=== PATIENT | male | born 1985 | race Caucasian/White ===

== ENCOUNTER 2017-10-22 10:52 | Inpatient (IN) | payer OTHER ==
[2017-10-22] MEDS ORDERED: IV NORMAL SALINE 1000ML BAG 1,000 ML IV ONE ×2 (11:00→12:00)
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
[2017-10-22 11:19] LABS: BASO % 0 % (0-3); EOS % 0 % (0-3); HEMOGLOBIN 15.3 g/dL (13.0-17.5); LYMPH # 1.4 x10^3/uL (1.0-4.8); LYMPH % 11 % (24-48); MEAN CORPUSCULAR HEMOGLOBIN 30 pg (25-35); MEAN CORPUSCULAR HGB CONC 34 g/dL (31-37); MEAN CORPUSCULAR VOLUME 89 fL (79-100); MONO % 6 % (0-9); NEUT % 83 % (31-73); PLATELET COUNT 259 x10^3/uL (140-400); RED BLOOD COUNT 5.08 x10^6/uL (4.30-5.70)
[2017-10-22 11:22] LABS: CALCIUM 10.2 mg/dL (8.5-10.1); CREATININE 1.2 mg/dL (0.7-1.3); GFR 70.2; POTASSIUM 3.5 mmol/L (3.5-5.1)
[2017-10-22 11:28] LABS: ALBUMIN 4.3 g/dL (3.4-5.0); ALBUMIN/GLOBULIN RATIO 1.1 (1.0-1.7); TOTAL BILIRUBIN 0.6 mg/dL (0.2-1.0); TOTAL PROTEIN 8.1 g/dL (6.4-8.2)
[2017-10-22] MEDS ORDERED: DIPHTH,PERTUSS(ACELL),TET TOX 0.5 ML DISP.SYRIN. VAX IM ONE (11:30)
--- NOTE | 2017-10-22 11:47 | EKG ---
[facility] [address] [place] [address] Test Date: 2017-10-22 Test Time: 10:56:03 Pat Name: CASSIDY HILL Department: Room: Gender: M Clinical Education Specialist: : [id number] Requested By: PAM SCHMITT Order Number: [id number] Reading MD: Neto Zurita Measurements Intervals [place] Rate: 99 P: 74 IL: 136 QRS: 78 QRSD: 94 T: 53 QT: 318 QTc: 408 Interpretive Statements SINUS RHYTHM NO SPECIFIC ECG ABNORMALITIES Electronically Signed On 11-04-2017 13:52:44 SHAREPOINT ANALYST by Neto Zurita
[2017-10-22] MEDS ORDERED: cefTRIAXone SODIUM 2 GM in IV DEXTROSE 5% 100 ML IV ONE (12:00)
[2017-10-22] MEDS ORDERED: cefTRIAXone IV Push 2 GM VIAL. IVP ONE (12:00)
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
[2017-10-22 12:25] LABS: BARBITURATES NEG (NEG); BENZODIAZEPINES NEG (NEG); CANNABINOIDS NEG (NEG); COCAINE NEG (NEG); METHADONE NEG (NEG); OPIATES NEG (NEG); PHENCYCLIDINE NEG (NEG)
[2017-10-22 13:29] LABS: BILIRUBIN,URINE NEGATIVE (NEG); GLUCOSE,URINE NEGATIVE (NEG); NITRITE,URINE NEGATIVE (NEG); PROTEIN,URINE NEGATIVE (NEG-TRACE); UROBILINOGEN,URINE 0.2 mg/dL (0.2 mg/dL)
[2017-10-22 13:40] LABS: BACTERIA,URINE FEW /HPF (0-FEW); RBC,URINE RARE /HPF (0-2); WBC,URINE OCC /HPF (0-4)
[2017-10-22] MEDS ORDERED: LIDOCAINE 2% 20 ML VIAL. ONE (13:44)
[2017-10-22 14:21] LABS: CSF CLARITY CLEAR; CSF COLOR COLORLESS
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
[2017-10-22] MEDS ORDERED: IV DEXTROSE 5 %-0.45 % NACL 1,000 ML IV ONE ×2 (15:00)
[2017-10-22] MEDS ORDERED: IOHEXOL 240 MG/ML 50ML VIAL. PO ONE (15:15)
[2017-10-22] MEDS ORDERED: CONTRAST GIVEN MC PRN (15:15)
[2017-10-22] MEDS ORDERED: IOHEXOL 300 MG/ML 100ML VIAL. IV ONE (15:15)
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
[2017-10-22] MEDS ORDERED: HALOPERIDOL LACTATE 5 MG/ML VIAL. IM PRN (17:15)
[2017-10-22] MEDS ORDERED: HALOPERIDOL LACTATE 5 MG/ML VIAL. IVP PRN (17:15)
[2017-10-22 19:00] VITALS: BP 119/71
[2017-10-22 23:04] VITALS: BP 126/76
[2017-10-23 03:33] VITALS: BP 113/78
[2017-10-23 03:45] LABS: BASO % 0 % (0-3); EOS % 1 % (0-3); HEMATOCRIT 39.3 % (39.0-53.0); HEMOGLOBIN 13.4 g/dL (13.0-17.5); LYMPH # 2.9 x10^3/uL (1.0-4.8); LYMPH % 30 % (24-48); MEAN CORPUSCULAR HEMOGLOBIN 31 pg (25-35); MEAN CORPUSCULAR HGB CONC 34 g/dL (31-37); MEAN CORPUSCULAR VOLUME 90 fL (79-100); MONO % 11 % (0-9); NEUT % 59 % (31-73); PLATELET COUNT 219 x10^3/uL (140-400); RED BLOOD COUNT 4.36 x10^6/uL (4.30-5.70); RED CELL DISTRIBUTION WIDTH 13.1 % (11.5-14.5); WHITE BLOOD COUNT 9.7 x10^3/uL (4.0-11.0)
[2017-10-23 06:50] VITALS: BP 110/74
[2017-10-23 10:45] VITALS: BP 107/70
[2017-10-23] MEDS ORDERED: IOHEXOL 300 MG/ML 100ML VIAL. IV ONE (12:45)
[2017-10-23] MEDS ORDERED: CONTRAST GIVEN MC PRN (12:45)
[2017-10-23] MEDS ORDERED: IOHEXOL 240 MG/ML 50ML VIAL. PO ONE (12:45)
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
[2017-10-23] MEDS ORDERED: GADOBUTROL 7.5 MMOL/7.5 ML VIAL IV ONE (18:00)
--- NOTE | 2017-10-23 18:14 | EEG ---
DATE OF SERVICE: 10/23/2017 EEG NUMBER: [id number] OBJECTIVE: This is a 32-year-old male patient with history of mental status changes and possible seizure. EEG was requested to help rule out seizures. METHODS: Twenty electrodes were applied according to the international 10-20 electrode placement system. EKG monitoring, hyperventilation, intermittent photic stimulation, monopolar and bipolar montages are routinely utilized. The record was obtained on a digital system with video monitoring. FINDINGS: 1. Background: The patient was recorded in the awake and drowsy states. No sleep state was recorded. The overall background amplitude is 10-20 microvolts. A posterior dominant rhythm of 9-10 Hz is observed with superimposed fast activity in beta frequency. 2. Abnormalities: No specific epileptiform discharge or electrographic seizure is seen. No focal or diffuse slowing. Fast activity in beta frequency noted. Artifact also noted. 3. Activation: Hyperventilation was performed with good efforts and normal response. Intermittent photic stimulation was performed with photic driving. No specific epileptiform discharge or electrographic seizure induced. IMPRESSION: This EEG is a borderline study for the awake and drowsy states. No sleep state was recorded. The faster activity in beta frequency noted. No focal, lateralizing, specific epileptiform discharge or electrographic seizure is seen. CONRAD RODRIGUEZ MD DR: SIN/joyce JOB#: [id number] / [id number] ALYSIA
--- NOTE | 2017-10-23 18:18 | PDOC ---
PROGRESS NOTES History of Present Illness History of Present Illness admitted with altered mentation, found by his truck, work up to date reviewed Vitals Vitals Vital Signs Date Time Temp Pulse Resp B/P (MAP) Pulse Ox O2 Delivery O2 Flow Rate FiO2 10/23/17 10:45 97.8 99 18 107/70 (82) 97 Room Air 97.8 Past Medical History Cardiovascular: No pertinent hx Pulmonary: No pertinent hx GI: No pertinent hx Heme/Onc: No pertinent hx Hepatobiliary: No pertinent hx Psych: No pertinent hx Rheumatologic: No pertinent hx Infectious disease: No pertinent hx ENT: No pertinent hx Endocrine: No pertinent hx Dermatology: No pertinent hx Past Surgical History Past Surgical History: No pertinent history Family History Family History: No Significant Social History Smoke: No ALCOHOL: none Drugs: None Current Medications Current Medications Current Medications Sodium Chloride 1,000 ml @ 1,000 mls/hr 1X ONCE IV Last administered on 10/22 11:56; Start 10/22/17 at 11:00; Stop 10/22/17 at 11:59; Status DC Diphtheria/ Tetanus/Acell Pertussis (Boostrix) 0.5 ml ONCE ONCE VAX IM Last administered on 10/22/17 11:59; Start 10/22/17 at 11:30; Stop 10/22/17 at 11 :31; Status DC Sodium Chloride 1,000 ml @ 1,000 mls/hr 1X ONCE IV Last administered on 10/22 12:44; Start 10/22/17 at 12:00; Stop 10/22/17 at 12:59; Status DC Ceftriaxone Sodium 2 gm/ Dextrose 100 ml @ 200 mls/hr 1X ONCE IV ; Start at 12:00; Stop 10/22/17 at 12:00; Status DC Ceftriaxone Sodium (Rocephin) 2 gm 1X ONCE IVP Last administered on 12:44; Start 10/22/17 at 12:00; Stop 10/22/17 at 12:01; Status DC Allergies Allergies: Coded Allergies: No Known Drug Allergies (Unverified , 10/22/17) ROS Review of System limited, guarded demeanor, was not interested in food Physical Exam General: Alert, Oriented X3, Cooperative, No acute distress HEENT: PERRLA, EOMI Lungs: Clear to auscultation, Normal air movement Heart: S1S2, RRR, no thrills, no rubs, no gallops, no murmurs Cardiovascular: S1, S2, Other (sinus tachy) Abdomen: Normal bowel sounds, Soft, No tenderness, No hepatosplenomegaly, No masses Male Genitals Exam: normal genitalia, normal prostate Rectal Exam: not examined PELVIC: Nml ext genitalia Extremities: No clubbing, No cyanosis, No edema, Normal pulses, No tenderness/ swelling Skin: Other (multiple scratches, face, hands) Neuro: Normal gait, Normal speech, Strength at 5/5 X4 ext, Normal tone, Sensation intact, Cranial nerves 3-12 NL, Reflexes 2+ Psych/Mental Status: Mental status NL, Mood NL Vitals Vitals Physical Exam Physical Exam Past Medical History Cardiovascular: No pertinent hx Pulmonary: No pertinent hx GI: No pertinent hx Heme/Onc: No pertinent hx Hepatobiliary: No pertinent hx Psych: No pertinent hx Rheumatologic: No pertinent hx Infectious disease: No pertinent hx ENT: No pertinent hx Endocrine: No pertinent hx Dermatology: No pertinent hx Past Surgical History Past Surgical History: No pertinent history Family History Family History: No Significant Social History Smoke: No ALCOHOL: none Drugs: None Current Medications Current Medications Current Medications Sodium Chloride 1,000 ml @ 1,000 mls/hr 1X ONCE IV Last administered on 10/22 11:56; Start 10/22/17 at 11:00; Stop 10/22/17 at 11:59; Status DC Diphtheria/ Tetanus/Acell Pertussis (Boostrix) 0.5 ml ONCE ONCE VAX IM Last administered on 10/22/17 11:59; Start 10/22/17 at 11:30; Stop 10/22/17 at 11 :31; Status DC Sodium Chloride 1,000 ml @ 1,000 mls/hr 1X ONCE IV Last administered on 10/22 12:44; Start 10/22/17 at 12:00; Stop 10/22/17 at 12:59; Status DC Ceftriaxone Sodium 2 gm/ Dextrose 100 ml @ 200 mls/hr 1X ONCE IV ; Start at 12:00; Stop 10/22/17 at 12:00; Status DC Ceftriaxone Sodium (Rocephin) 2 gm 1X ONCE IVP Last administered on 11/21/ 17at 12:44; Start 10/22/17 at 12:00; Stop 10/22/17 at 12:01; Status DC Allergies Allergies: Coded Allergies: No Known Drug Allergies (Unverified , 10/22/17) ROS Review of System limited, guarded demeanor, was not interested in food Physical Exam General: Alert, Oriented X3, Cooperative, No acute distress HEENT: PERRLA, EOMI Lungs: Clear to auscultation, Normal air movement Heart: S1S2, RRR, no thrills, no rubs, no gallops, no murmurs Cardiovascular: S1, S2, Other (sinus tachy) Abdomen: Normal bowel sounds, Soft, No tenderness, No hepatosplenomegaly, No masses Rectal Exam: not examined PELVIC: Nml ext genitalia Extremities: No clubbing, No cyanosis, No edema, Normal pulses, No tenderness/ swelling Skin: Other (multiple scratches, face, hands) Neuro: Normal gait, Normal speech, Strength at 5/5 X4 ext, Normal tone, Sensation intact, Cranial nerves 3-12 NL, Reflexes 2+ Psych/Mental Status: Mental status NL, Mood NL Vitals Vitals General: Alert, Oriented X3, Cooperative, No acute distress Heart: Regular rate Lungs: Clear Abdomen: Soft, No tenderness Extremities: No clubbing, No cyanosis Skin: No rashes, No breakdown Labs LABS Findings: No acute extra-axial or parenchymal hemorrhage is identified. There is no significant intra-axial mass effect, midline shift, or extra-axial fluid collection. The malik-white differentiation of the major vascular territories is preserved. The ventricles, sulci, and cisterns are within normal limits in size and configuration. The mastoid air cells and the visualized paranasal sinuses are aerated. There is no significant focal calvarial abnormality. Impression: 1. No acute intracranial abnormality is identified. Cervical spine CT Comparison: None Findings: No acute cervical spine fracture is identified. Vertebral body stature and AP alignment are within normal limits. Atlanto-axial distance is within normal limits. There is appropriate alignment of lateral masses of C1 relative to C2. Occipital condylar-C1 relationship is maintained. There is mild degenerative disc disease C5-C6. There are minimal disc osteophyte complexes C3-4 to C5-C6. There is probable mild spinal stenosis on the order of 8 to 9 mm at C5-C6. There is uncovertebral degenerative change greatest on the right at C5-C6. There is moderate to severe right and moderate left C5-C6 neural foramina compromise, also mild to moderate narrowing on the left at C3-4. Impression: 1. No acute cervical spine fracture is identified. 2. There is degenerative disc disease and spondylosis greatest C5-C6 at which there is likely mild spinal stenosis. 3. Uncovertebral degenerative change contributes to neural foramina compromise greatest bilaterally at C5-C6. Laboratory Tests Test 10/23/17 03:00 White Blood Count 9.7 x10^3/uL (4.0-11.0) Red Blood Count 4.36 x10^6/uL (4.30-5.70) Hemoglobin 13.4 g/dL (13.0-17.5) Hematocrit 39.3 % (39.0-53.0) Mean Corpuscular Volume 90 fL (79-100) Mean Corpuscular Hemoglobin 31 pg (25-35) Mean Corpuscular Hemoglobin Concent 34 g/dL (31-37) Red Cell Distribution Width 13.1 % (11.5-14.5) Platelet Count 219 x10^3/uL (140-400) Neutrophils (%) (Auto) 59 % (31-73) Lymphocytes (%) (Auto) 30 % (24-48) Monocytes (%) (Auto) 11 % (0-9) Eosinophils (%) (Auto) 1 % (0-3) Basophils (%) (Auto) 0 % (0-3) Neutrophils # (Auto) 5.7 x10^3uL (1.8-7.7) Lymphocytes # (Auto) 2.9 x10^3/uL (1.0-4.8) Monocytes # (Auto) 1.0 x10^3/uL (0.0-1.1) Eosinophils # (Auto) 0.0 x10^3/uL (0.0-0.7) Basophils # (Auto) 0.0 x10^3/uL (0.0-0.2) Lactic Acid Level 0.8 mmol/L (0.4-2.0) Calcium Level 9.1 mg/dL (8.5-10.1) Review of Systems Review of Systems feels ok memory ok mri pending at 18:40 he is under lots of financial stress concern for seizure, however, no witness, he did not bite his tongue no driving x 6 months see neurology in 2 weeks if MRI HEAD OK Assessment and Plan Assessmemt and Plan Problems Medical Problems: (1) Acute encephalopathy Status: Acute (2) Lactic acidosis Status: Acute (3) Psychosis Status: Acute p Problems: Comment Review of Relevant I have reviewed the following items nazanin (where applicable) has been applied. Labs Laboratory Tests Test 10/22/17 11:04 10/22/17 11:30 10/22/17 12:11 10/22/17 13:49 White Blood Count 13.0 x10^3/uL (4.0-11.0) Red Blood Count 5.08 x10^6/uL (4.30-5.70) Hemoglobin 15.3 g/dL (13.0-17.5) Hematocrit 45.0 % (39.0-53.0) Mean Corpuscular Volume 89 fL (79-100) Mean Corpuscular Hemoglobin 30 pg (25-35) Mean Corpuscular Hemoglobin Concent 34 g/dL (31-37) Red Cell Distribution Width 13.0 % (11.5-14.5) Platelet Count 259 x10^3/uL (140-400) Neutrophils (%) (Auto) 83 % (31-73) Lymphocytes (%) (Auto) 11 % (24-48) Monocytes (%) (Auto) 6 % (0-9) Eosinophils (%) (Auto) 0 % (0-3) Basophils (%) (Auto) 0 % (0-3) Neutrophils # (Auto) 10.9 x10^3uL (1.8-7.7) Lymphocytes # (Auto) 1.4 x10^3/uL (1.0-4.8) Monocytes # (Auto) 0.7 x10^3/uL (0.0-1.1) Eosinophils # (Auto) 0.0 x10^3/uL (0.0-0.7) Basophils # (Auto) 0.0 x10^3/uL (0.0-0.2) Sodium Level 140 mmol/L (136-145) Potassium Level 3.5 mmol/L (3.5-5.1) Chloride Level 101 mmol/L (98-107) Carbon Dioxide Level 26 mmol/L (21-32) Anion Gap 13 (6-14) Blood Urea Nitrogen 15 mg/dL (8-26) Creatinine 1.2 mg/dL (0.7-1.3) Estimated GFR (Cockcroft-Gault) 70.2 BUN/Creatinine Ratio 13 (6-20) Glucose Level 186 mg/dL (70-99) Lactic Acid Level 4.5 mmol/L (0.4-2.0) Calcium Level 10.2 mg/dL (8.5-10.1) Total Bilirubin 0.6 mg/dL (0.2-1.0) Aspartate Amino Transf (AST/SGOT) 24 U/L (15-37) Alanine Aminotransferase (ALT/SGPT) 20 U/L (16-63) Alkaline Phosphatase 79 U/L (46-116) Total Protein 8.1 g/dL (6.4-8.2) Albumin 4.3 g/dL (3.4-5.0) Albumin/Globulin Ratio 1.1 (1.0-1.7) Ethyl Alcohol Level < 10 mg/dL (0-10) Ethyl Alcohol Level (Legal) Specimen drawn Urine Collection Type Unknown Urine Color Yellow Urine Clarity Clear Urine pH 7.0 Urine Specific [place] 1.025 Urine Protein Negative mg/dL (NEG-TRACE) Urine Glucose (UA) Negative mg/dL (NEG) Urine Ketones (Stick) 40 mg/dL (NEG) Urine Blood Negative (NEG) Urine Nitrite Negative (NEG) Urine Bilirubin Negative (NEG) Urine Urobilinogen Dipstick 0.2 mg/dL (0.2 mg/dL) Urine Leukocyte Esterase Negative (NEG) Urine RBC Rare /HPF (0-2) Urine WBC Occ /HPF (0-4) Urine Squamous Epithelial Cells None /LPF Urine Bacteria Few /HPF (0-FEW) Urine Mucus Slight /LPF Urine Opiates Screen Neg (NEG) Urine Methadone Screen Neg (NEG) Urine Barbiturates Neg (NEG) Urine Phencyclidine Screen Neg (NEG) Urine Amphetamine/Methamphetamine Neg (NEG) Urine Benzodiazepines Screen Neg (NEG) Urine Cocaine Screen Neg (NEG) Urine Cannabinoids Screen Neg (NEG) Urine Ethyl Alcohol Neg (NEG) CSF Tube Number 4 CSF Color Colorless CSF Clarity Clear CSF WBC 1 CSF RBC 0 CSF Glucose 86 mg/dL (37-70) CSF Total Protein 38.0 mg/dL (15.0-45.0) Test 11/21/17 14:35 10/23/17 03:00 Glucose Level 98 mg/dL (70-99) Lactic Acid Level 1.1 mmol/L (0.4-2.0) 0.8 mmol/L (0.4-2.0) White Blood Count 9.7 x10^3/uL (4.0-11.0) Red Blood Count 4.36 x10^6/uL (4.30-5.70) Hemoglobin 13.4 g/dL (13.0-17.5) Hematocrit 39.3 % (39.0-53.0) Mean Corpuscular Volume 90 fL (79-100) Mean Corpuscular Hemoglobin 31 pg (25-35) Mean Corpuscular Hemoglobin Concent 34 g/dL (31-37) Red Cell Distribution Width 13.1 % (11.5-14.5) Platelet Count 219 x10^3/uL (140-400) Neutrophils (%) (Auto) 59 % (31-73) Lymphocytes (%) (Auto) 30 % (24-48) Monocytes (%) (Auto) 11 % (0-9) Eosinophils (%) (Auto) 1 % (0-3) Basophils (%) (Auto) 0 % (0-3) Neutrophils # (Auto) 5.7 x10^3uL (1.8-7.7) Lymphocytes # (Auto) 2.9 x10^3/uL (1.0-4.8) Monocytes # (Auto) 1.0 x10^3/uL (0.0-1.1) Eosinophils # (Auto) 0.0 x10^3/uL (0.0-0.7) Basophils # (Auto) 0.0 x10^3/uL (0.0-0.2) Calcium Level 9.1 mg/dL (8.5-10.1) Laboratory Tests Test 10/23/17 03:00 White Blood Count 9.7 x10^3/uL (4.0-11.0) Red Blood Count 4.36 x10^6/uL (4.30-5.70) Hemoglobin 13.4 g/dL (13.0-17.5) Hematocrit 39.3 % (39.0-53.0) Mean Corpuscular Volume 90 fL (79-100) Mean Corpuscular Hemoglobin 31 pg (25-35) Mean Corpuscular Hemoglobin Concent 34 g/dL (31-37) Red Cell Distribution Width 13.1 % (11.5-14.5) Platelet Count 219 x10^3/uL (140-400) Neutrophils (%) (Auto) 59 % (31-73) Lymphocytes (%) (Auto) 30 % (24-48) Monocytes (%) (Auto) 11 % (0-9) Eosinophils (%) (Auto) 1 % (0-3) Basophils (%) (Auto) 0 % (0-3) Neutrophils # (Auto) 5.7 x10^3uL (1.8-7.7) Lymphocytes # (Auto) 2.9 x10^3/uL (1.0-4.8) Monocytes # (Auto) 1.0 x10^3/uL (0.0-1.1) Eosinophils # (Auto) 0.0 x10^3/uL (0.0-0.7) Basophils # (Auto) 0.0 x10^3/uL (0.0-0.2) Lactic Acid Level 0.8 mmol/L (0.4-2.0) Calcium Level 9.1 mg/dL (8.5-10.1) Microbiology 10/22/17 Blood Culture - Preliminary, Resulted NO GROWTH AFTER 1 DAY 10/22/17 Anaerobic/Aerobic Culture, Resulted Pending 10/22/17 Anaerobic Culture Result 1 ([facility]), Resulted Pending 10/22/17 Aerobic Culture - Preliminary, Resulted 10/22/17 Aerobic Culture Result 1 ([facility]) - Preliminary, Resulted Medications Current Medications Sodium Chloride 1,000 ml @ 1,000 mls/hr 1X ONCE IV Last administered on 10/22 11:56; Start 10/22/17 at 11:00; Stop 10/22/17 at 11:59; Status DC Diphtheria/ Tetanus/Acell Pertussis (Boostrix) 0.5 ml ONCE ONCE VAX IM Last administered on 10/22/17 11:59; Start 10/22/17 at 11:30; Stop 10/22/17 at 11 :31; Status DC Sodium Chloride 1,000 ml @ 1,000 mls/hr 1X ONCE IV Last administered on 10/22 12:44; Start 10/22/17 at 12:00; Stop 10/22/17 at 12:59; Status DC Ceftriaxone Sodium 2 gm/ Dextrose 100 ml @ 200 mls/hr 1X ONCE IV ; Start at 12:00; Stop 10/22/17 at 12:00; Status DC Ceftriaxone Sodium (Rocephin) 2 gm 1X ONCE IVP Last administered on 12:44; Start 10/22/17 at 12:00; Stop 10/22/17 at 12:01; Status DC Dextrose/Sodium Chloride 1,000 ml @ 100 mls/hr 1X ONCE IV ; Start 10/22/17 at 15:00; Stop 10/23/17 at 00:59; Status DC Dextrose/Sodium Chloride 1,000 ml @ 100 mls/hr 1X ONCE IV Last administered on 10/22/17 17:40; Start 10/22/17 at 15:00; Stop 10/23/17 at 00:59; Status DC Iohexol (Omnipaque 240 Mg/ml) 30 ml 1X ONCE PO ; Start 10/22/17 at 15:15; Stop 10/22/17 at 15:16; Status DC Iohexol (Omnipaque 300 Mg/ml) 75 ml 1X ONCE IV ; Start 10/22/17 at 15:15; Stop 10/22/17 at 15:16; Status DC Info (Do NOT chart on this entry -- for MONITORING) 1 each PRN DAILY PRN MC SEE COMMENTS; Start 10/22/17 at 15:15; Stop 10/23/17 at 12:36; Status DC Lorazepam (Ativan) 2 mg PRN Q4HRS PRN IV ANXIETY/AGITATION (1st Choice) Last administered on 10/22/17 23:07; Start 10/22/17 at 17:15 Haloperidol Lactate (Haldol) 5 mg PRN Q6HRS PRN IVP ANXIETY/AGITATION (2nd Choice); Start 10/22/17 at 17:15 Lorazepam (Ativan) 2 mg PRN Q4HRS PRN IM ANXIETY/AGITATION (1st Choice) Last administered on 10/22/17 17:33; Start 10/22/17 at 17:15 Haloperidol Lactate (Haldol) 5 mg PRN Q6HRS PRN IM ANXIETY/AGITATION (2nd Choice); Start 10/22/17 at 17:15 Iohexol (Omnipaque 300 Mg/ml) 75 ml 1X ONCE IV ; Start 10/23/17 at 12:45; Stop 10/23/17 at 12:46; Status DC Iohexol (Omnipaque 240 Mg/ml) 30 ml 1X ONCE PO ; Start 10/23/17 at 12:45; Stop 10/23/17 at 12:46; Status DC Info (Do NOT chart on this entry -- for MONITORING) 1 each PRN DAILY PRN MC SEE COMMENTS; Start 10/23/17 at 12:45; Stop 10/25/17 at 12:44 Gadobutrol (Gadavist) 5 mmol 1X ONCE IV Last administered on 10/23/17t 18:07 ; Start 10/23/17 at 18:00; Stop 10/23/17 at 18:01; Status DC Vitals/I & O Vital Sign - Last 24 Hours 10/22/17 10/22/17 10/22/17 10/23/17 19:00 20:00 23:04 03:33 Temp 98.5 98.4 98.6 98.5 98.4 98.6 Pulse 90 102 116 Resp 16 20 18 B/P (MAP) 119/71 (87) 126/76 (93) 113/78 (90) Pulse Ox 98 98 99 O2 Delivery Room Air Room Air Room Air Room Air 10/23/17 10/23/17 10/23/17 06:50 07:30 10:45 Temp 98.2 97.8 98.2 97.8 Pulse 102 99 Resp 17 18 B/P (MAP) 110/74 (86) 107/70 (82) Pulse Ox 98 97 O2 Delivery Room Air Room Air Room Air Intake and Output 10/22/17 10/22/17 10/23/17 15:00 23:00 07:00 Intake Total 0 ml 0 ml Output Total 550 ml Balance 0 ml -550 ml SILVER VAIL MD Oct 23, 2017 18:18
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
[2017-10-23 19:50] VITALS: BP 111/70
--- NOTE | 2017-10-23 20:19 | RAD ---
EXAM: Brain MRI with and without contrast. HISTORY: Syncope. Seizure. TECHNIQUE: Multiplanar, multisequence magnetic resonance imaging of the brain was performed prior to and following the administration of 5 cc Gadavist intravenous contrast. COMPARISON: None. FINDINGS: There is no restricted diffusion to suggest acute or subacute infarction. There is no susceptibility effect to suggest hemorrhage. There is no mass effect or midline shift. There is no hydrocephalus. No suspicious white matter lesion is seen. There is no heterotopia or malformation of cortical development. The hippocampi demonstrate symmetric size and signal. The orbits, paranasal sinuses and mastoid air cells are unremarkable. There are normal flow voids within the cerebral vessels. No enhancing lesion is seen. IMPRESSION: No acute intracranial finding. Electronically signed by: Velma Horne MD (10/23/2017 8:16 PM) [id number]
[2017-10-23 23:37] VITALS: BP 109/59
[2017-10-24] MEDS ORDERED: IBUPROFEN 400 MG TABLET. PO PRN (03:30)
[2017-10-24 03:34] VITALS: BP 99/55
[2017-10-24 07:00] VITALS: BP 92/56
--- NOTE | 2017-10-24 07:49 | PDOC ---
SURGICAL PROGRESS NOTE Subjective No acute changes Vital Signs Vital Signs Date Time Temp Pulse Resp B/P (MAP) Pulse Ox O2 Delivery O2 Flow Rate FiO2 10/24/17 03:34 98.1 59 16 99/55 (70) 99 Room Air 98.1 I&O Intake and Output 10/24/17 07:00 Intake Total 200 ml Balance 200 ml Intake Oral 200 ml # Voids 3 PATIENT HAS A FLORENCE: No General: Alert, Oriented X3, Cooperative, No acute distress Abdomen: Normal bowel sounds, Soft, No tenderness Labs Laboratory Tests Test 10/22/17 11:04 10/22/17 11:30 10/22/17 12:11 10/22/17 13:49 White Blood Count 13.0 x10^3/uL (4.0-11.0) Red Blood Count 5.08 x10^6/uL (4.30-5.70) Hemoglobin 15.3 g/dL (13.0-17.5) Hematocrit 45.0 % (39.0-53.0) Mean Corpuscular Volume 89 fL (79-100) Mean Corpuscular Hemoglobin 30 pg (25-35) Mean Corpuscular Hemoglobin Concent 34 g/dL (31-37) Red Cell Distribution Width 13.0 % (11.5-14.5) Platelet Count 259 x10^3/uL (140-400) Neutrophils (%) (Auto) 83 % (31-73) Lymphocytes (%) (Auto) 11 % (24-48) Monocytes (%) (Auto) 6 % (0-9) Eosinophils (%) (Auto) 0 % (0-3) Basophils (%) (Auto) 0 % (0-3) Neutrophils # (Auto) 10.9 x10^3uL (1.8-7.7) Lymphocytes # (Auto) 1.4 x10^3/uL (1.0-4.8) Monocytes # (Auto) 0.7 x10^3/uL (0.0-1.1) Eosinophils # (Auto) 0.0 x10^3/uL (0.0-0.7) Basophils # (Auto) 0.0 x10^3/uL (0.0-0.2) Sodium Level 140 mmol/L (136-145) Potassium Level 3.5 mmol/L (3.5-5.1) Chloride Level 101 mmol/L (98-107) Carbon Dioxide Level 26 mmol/L (21-32) Anion Gap 13 (6-14) Blood Urea Nitrogen 15 mg/dL (8-26) Creatinine 1.2 mg/dL (0.7-1.3) Estimated GFR (Cockcroft-Gault) 70.2 BUN/Creatinine Ratio 13 (6-20) Glucose Level 186 mg/dL (70-99) Lactic Acid Level 4.5 mmol/L (0.4-2.0) Calcium Level 10.2 mg/dL (8.5-10.1) Total Bilirubin 0.6 mg/dL (0.2-1.0) Aspartate Amino Transf (AST/SGOT) 24 U/L (15-37) Alanine Aminotransferase (ALT/SGPT) 20 U/L (16-63) Alkaline Phosphatase 79 U/L (46-116) Total Protein 8.1 g/dL (6.4-8.2) Albumin 4.3 g/dL (3.4-5.0) Albumin/Globulin Ratio 1.1 (1.0-1.7) Ethyl Alcohol Level < 10 mg/dL (0-10) Ethyl Alcohol Level (Legal) Specimen drawn Urine Collection Type Unknown Urine Color Yellow Urine Clarity Clear Urine pH 7.0 Urine Specific [place] 1.025 Urine Protein Negative mg/dL (NEG-TRACE) Urine Glucose (UA) Negative mg/dL (NEG) Urine Ketones (Stick) 40 mg/dL (NEG) Urine Blood Negative (NEG) Urine Nitrite Negative (NEG) Urine Bilirubin Negative (NEG) Urine Urobilinogen Dipstick 0.2 mg/dL (0.2 mg/dL) Urine Leukocyte Esterase Negative (NEG) Urine RBC Rare /HPF (0-2) Urine WBC Occ /HPF (0-4) Urine Squamous Epithelial Cells None /LPF Urine Bacteria Few /HPF (0-FEW) Urine Mucus Slight /LPF Urine Opiates Screen Neg (NEG) Urine Methadone Screen Neg (NEG) Urine Barbiturates Neg (NEG) Urine Phencyclidine Screen Neg (NEG) Urine Amphetamine/Methamphetamine Neg (NEG) Urine Benzodiazepines Screen Neg (NEG) Urine Cocaine Screen Neg (NEG) Urine Cannabinoids Screen Neg (NEG) Urine Ethyl Alcohol Neg (NEG) CSF Tube Number 4 CSF Color Colorless CSF Clarity Clear CSF WBC 1 CSF RBC 0 CSF Glucose 86 mg/dL (37-70) CSF Total Protein 38.0 mg/dL (15.0-45.0) Test 10/22/17 14:35 10/23/17 03:00 Glucose Level 98 mg/dL (70-99) Lactic Acid Level 1.1 mmol/L (0.4-2.0) 0.8 mmol/L (0.4-2.0) White Blood Count 9.7 x10^3/uL (4.0-11.0) Red Blood Count 4.36 x10^6/uL (4.30-5.70) Hemoglobin 13.4 g/dL (13.0-17.5) Hematocrit 39.3 % (39.0-53.0) Mean Corpuscular Volume 90 fL (79-100) Mean Corpuscular Hemoglobin 31 pg (25-35) Mean Corpuscular Hemoglobin Concent 34 g/dL (31-37) Red Cell Distribution Width 13.1 % (11.5-14.5) Platelet Count 219 x10^3/uL (140-400) Neutrophils (%) (Auto) 59 % (31-73) Lymphocytes (%) (Auto) 30 % (24-48) Monocytes (%) (Auto) 11 % (0-9) Eosinophils (%) (Auto) 1 % (0-3) Basophils (%) (Auto) 0 % (0-3) Neutrophils # (Auto) 5.7 x10^3uL (1.8-7.7) Lymphocytes # (Auto) 2.9 x10^3/uL (1.0-4.8) Monocytes # (Auto) 1.0 x10^3/uL (0.0-1.1) Eosinophils # (Auto) 0.0 x10^3/uL (0.0-0.7) Basophils # (Auto) 0.0 x10^3/uL (0.0-0.2) Calcium Level 9.1 mg/dL (8.5-10.1) I have reviewed the following CT chest/abd /pelvis with no acute findings Problem List Problems Medical Problems: (1) Acute encephalopathy Status: Acute (2) Lactic acidosis Status: Acute (3) Psychosis Status: Acute Assessment/Plan Negative CT No surgical indications Will sign off Problems: SILVER ARITA MD Oct 24, 2017 07:49
[2017-10-24 11:00] VITALS: BP 96/44
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
== END 2017-10-24 13:05 | disposition home or self-care (01) | DRG 71 ==
LOC: ER 10:52 → 6 SOUTH 13:20
PROVIDERS: ADMIT Internal Medicine Hematology & Oncology; ATTEND Internal Medicine Hematology & Oncology
PROC: 009U3ZX Drainage of Spinal Canal, Percutaneous Approach, Diagnostic (ICD-10-PCS; principal; 2017-10-22)
DX: G93.41 Metabolic encephalopathy (principal); E87.2 Acidosis; D72.829 Elevated white blood cell count, unspecified; F29 Unspecified psychosis not due to a substance or known physiological condition; Z87.891 Personal history of nicotine dependence; R00.0 Tachycardia, unspecified
CPT/HCPCS: 36415; 62270; 70450; 70553; 71010; 71260; 72125; 72131; 74177; 80053; 80307; 81001; 82310; 82945; 82947; 83605; 84157; 85025; 87040; 87071; 87075; 87205; 89051; 90471; 90715; 93005; 95816; 96374; A9585; G0480; J0696; J2060; J7030; 99291-25; G0479